=== PATIENT | male | born 1995 | race Caucasian/White ===

== ENCOUNTER → 2017-04-10 | Outpatient (CLI) | payer OTHER | END | disposition disaster alternative care site (69) | LOC: GAMB 00:14 | DX: G40.409 Other generalized epilepsy and epileptic syndromes, not intractable, without status epilepticus (principal); R00.0 Tachycardia, unspecified; Z86.59 Personal history of other mental and behavioral disorders; Z79.2 Long term (current) use of antibiotics | CPT/HCPCS: A0422; A0425; A0427; J2060; J2405 ==